=== PATIENT | female | born 1945 | race Caucasian/White ===

== ENCOUNTER 2017-04-08 08:21 | Emergency (ER) | payer OTHER ==
--- NOTE | 2017-04-08 08:39 | CPEKG ---
Heart Rate: 70 RR Interval: 857 P-R Interval: 156 QRSD Interval: 82 QT Interval: 420 QTC Interval: 454 P [place]: 34 QRS [place]: 8 T Wave [place]: 56 EKG Severity - NORMAL ECG - EKG Impression: SINUS RHYTHM Electronically Signed By: Deep Coats 09-Apr-2017 09:01:11
--- NOTE | 2017-04-08 08:42 | EDPHY ---
H & P Time Seen by Provider: 04/08/17 08:30 HPI/ROS: CHIEF COMPLAINT: Atraumatic left arm pain HISTORY OF PRESENT ILLNESS: This patient is a 72 year old female who presents to the Emergency Department complaining of left arm pain with gradual onset over the past week. She describes the pain as waxing and waning, "deep below the skin," most severe at night, and migrating throughout different aspects of her arm over time. Today, her pain is localized to the ulnar aspect of her forearm with radiation to the dorsum of her hand. She has not identified any alleviating or exacerbating factors for her pain. She denies neck pain or any recent heavy lifting or abnormal exercise. She does report some left-sided chest discomfort over the past week that she perceives as unrelated to her arm pain. This pain is intermittent, mild, non-exertional and vague. She has noticed that she has exertional dyspnea since she was diagnosed with pneumonia in 05/2015, without recent change. She denies chest discomfort during these dyspneic episodes. She has not had a cardiac workup performed in the past. Denies tobacco use. REVIEW OF SYSTEMS: Constitutional: No fever, no chills Eyes: No visual changes ENT: No sore throat Respiratory: No cough, +exertional shortness of breath Cardiac: +left-sided chest discomfort Gastrointestinal: No nausea, no vomiting, no abdominal pain Genitourinary: No hematuria, no dysuria Musculoskeletal: +left arm pain, no leg pain or swelling Skin: No rash Neurological: No headache, no numbness, no weakness Psychiatric: No depression Past Medical/Surgical History: Pneumonia in 05/2015. Denies any additional medical history. Social History: Denies tobacco use. 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 Smoking Status: Former smoker Physical Exam: General Appearance: Alert, pleasant Eyes: Pupils equal and round, no conjunctival pallor or injection ENT, Mouth: Mucous membranes moist Neck: Normal inspection, tender over the paraspinous musculature bilaterally, no midline tenderness, no pain with ROM Respiratory: Lungs are clear to auscultation Cardiovascular: Regular rate and rhythm Gastrointestinal: Abdomen is soft and non-tender Neurological: A&O, motor/sensory intact RUE, normal gait Skin: Warm and dry, no rash Vascular: 2+ radial pulses, cap refill brisk Extremities: normal inspection, no tenderness Psychiatric: Anxious affect Constitutional: Initial Vital Signs Temperature (C) 36.5 C 04/08/17 08:22 Heart Rate 78 04/08/17 08:22 Respiratory Rate 18 04/08/17 08:22 Blood Pressure 186/108 H 04/08/17 08:22 O2 Sat (%) 94 04/08/17 08:22 O2 Delivery Mode Room Air Allergies/Adverse Reactions: No Known Allergies Allergy (Verified 04/08/17 08:22) Home Medications: Medication Instructions Recorded NK [No Known Home Meds] 04/08/17 Medical Decision Making - Diagnostics EKG Interpretation: EKG interpreted by me reveals normal sinus rhythm, rate 70, no ST/T changes. Interpretation: normal EKG Imaging Results: Cspine: HASMUKH CXR: RLL nodule Imaging: Discussed imaging studies w/ bilingual call center representative Radiologist ED Course/Re-evaluation: 72-year-old female with no significant medical history presents with complaint of waxing and waning atraumatic left arm pain migrating throughout her arm over the past week. She has additional complaints of vague left-sided chest discomfort over that time as well. She reports persistent exertional dyspnea that has been ongoing since diagnosis of pneumonia in 05/2015. Upon arrival, she is hypertensive at 186/108 and appears anxious. Her exam is otherwise normal. Will proceed with cardiac workup including chest x-ray, labs, and EKG. The patient has been taking Aspirin regularly this week. Plan also for cervical spine x-ray as the patient's arm pain seems most suggestive of radiculopathy. EKG obtained and is normal (as above). Labs obtained and are within normal ranges. Troponin is negative. X-ray of the cervical spine reviewed and is unremarkablel. 941: Chest x-ray reveals a right lung base nodule per Dr. Patrick Hamilton. I discussed this finding with the patient who agrees to follow-up with her PCP for further evaluation. I discussed lab and imaging results with the patient, who is relieved. She understands that we cannot fully rule out cardiac disease in the ED; however, my suspicion of this cardiac etiology is low at this time. The patient appears to be experiencing cervical radiculopathy given presentation. She is given Ibuprofen instructions and strict return precautions prior to discharge home. She agrees to follow-up with her PCP this week for further evaluation. Understands need to f/u RLL nodule. Differential Diagnosis: includes though not limited to arterial compromise, ACS, strain, fracture, tendonitis - Data Points Laboratory Results: Laboratory Results 04/08/17 08:50 04/08/17 08:50 Medications Given: Discontinued Medications Ibuprofen (Motrin) 600 mg PO EDNOW ONE Stop: 04/08/17 09:51 Last Admin: 04/08/17 09:51 Dose: Not Given Ibuprofen (Motrin) 600 mg PO EDNOW ONE Stop: 04/08/17 09:51 Last Admin: 04/08/17 09:58 Dose: 600 mg Departure - Departure Disposition: Home, Routine, Self-Care Clinical Impression: Cervical radiculopathy Condition: Good Instructions: Cervical Radiculopathy (ED) Additional Instructions: Your chest x-ray revealed a nodule to the right lung base. Please follow-up with your primary care provider for further evaluation of this finding. Take 600mg Ibuprofen every 6 hours as needed for pain. Return to the Emergency Department for worsening pain, fever, increased chest pain, worsening shortness of breath, or other worsening of condition. Referrals: Rosario Mckinney MD [Primary Care Provider] - As per Instructions Report Scribed for: Krystle Luque Report Scribed by: Trina Cabrera Date of Report: 04/08/17 Time of Report: 08:38 Physician Review and Approval Statement: 04/08/17 08:38 Portions of this note were transcribed by a medical device engineer. I personally performed a history, physical exam, medical decision making, and confirmed accuracy of information the transcribed note.
[2017-04-08 09:01] LABS: % IMMATURE GRANULYOCYTES 0.2 % (0.0-1.1); ABSOLUTE IMMATURE GRANULOCYTES 0.01 10^3/uL (0.00-0.10); ADD DIFF? NO; ADD MORPH? NO; ADD SCAN? NO; ATYPICAL LYMPHOCYTE FLAG 0 (0-99); FRAGMENT RBC FLAG 0 (0-99); HEMOGLOBIN 15.3 g/dL (12.6-16.3); LEFT SHIFT FLG 0 (0-99); LIPEMIA HEMOLYSIS FLAG 90 (0-99); MEAN CELL HEMOGLOBIN 29.1 pg (27.9-34.1); MEAN CELL VOLUME 85.7 fL (81.5-99.8); MEAN PLATELET VOLUME 9.9 fL (8.7-11.7); PLATELET CLUMPS FLAG 0 (0-99); PLATELET COUNT 205 10^3/uL (150-400); RED BLOOD CELL COUNT 5.25 10^6/uL (4.18-5.33); RED CELL DISTRIBUTION WIDTH 12.9 % (11.5-15.2)
[2017-04-08 09:13] LABS: ANION GAP 10 mEq/L (8-16); CALCIUM 9.2 mg/dL (8.5-10.4); CARBON DIOXIDE 22 mEq/l (22-31); CHLORIDE 106 mEq/L (97-110); CREATININE 0.9 mg/dL (0.6-1.0); GLOMERULAR FILTRATION RATE > 60; GLUCOSE 109 mg/dL (70-100); POTASSIUM 4.3 mEq/L (3.5-5.2); SODIUM 138 mEq/L (134-144)
[2017-04-08 09:25] LABS: TROPONIN I < 0.012 ng/mL (0-0.034)
[2017-04-08] MEDS ORDERED: IBUPROFEN 600 MG TAB PO ONE ×2 (09:50)
[2017-04-08 10:00] VITALS: BP 180/98; PULSE 68; RESP 15; TEMP 98.1; O2SAT 95
== END 2017-04-08 10:04 | disposition home or self-care (01) ==
DX: M54.12 Radiculopathy, cervical region (principal); Z87.891 Personal history of nicotine dependence